=== PATIENT | female | born 1990 | race Caucasian/White ===

== ENCOUNTER 2018-07-06 20:04 | Emergency (ER) | payer OTHER ==
[~2018-07-06] VITALS: Ht 160 cm; Wt 68.0 kg
[2018-07-06] MEDS ORDERED: PNV-FERROUS FU1 EACH (20:33)
[2018-07-06] MEDS ORDERED: FOLIC ACID0.4 MG (20:33)
== END 2018-07-06 22:38 | disposition home or self-care (01) ==
LOC: ER 20:04
DX: O26.892 Other specified pregnancy related conditions, second trimester (principal); J11.1 Influenza due to unidentified influenza virus with other respiratory manifestations; Z34.82 Encounter for supervision of other normal pregnancy, second trimester